=== PATIENT | female | born 1965 | race Caucasian/White ===

== ENCOUNTER 2025-09-07 07:39 | Outpatient (CLI) | payer OTHER ==
[~2025-09-07 07:39] MED LIST: AMBIEN10 MG PO; CATAFLAM50 MG PO; CIPRO750 MG PO; Colace 100MG PO; EFFEXOR XR75 MG PO; FIORICET 50-321 EACH PO; FIRICET PO; NEURONTIN PO; NEUROTIN PO; NORCO 10/325 TA1 TAB PO; ORPH100T PO; RELPAX40 MG PO; RYBIX ODT50 MG PO; ZOCOR20 MG PO
== END 2025-09-07 07:41 | disposition home or self-care (01) ==
LOC: SONOGRAMA 07:39
PROVIDERS: ATTEND Pathology Anatomic Pathology & Clinical Pathology
DX: D34 Benign neoplasm of thyroid gland (principal); E07.89 Other specified disorders of thyroid; E04.2 Nontoxic multinodular goiter